=== PATIENT | female | born 1975 | race Caucasian/White ===

== ENCOUNTER 2025-04-30 08:53 | Outpatient (CLI) | payer BC, SELFPAY | END 2025-04-30 08:54 | disposition home or self-care (01) | LOC: LAB 05-07 06:56 | PROVIDERS: PCP Nurse Practitioner Family; Visit Provider Nurse Practitioner Family | DX: Z13.0 Encounter for screening for diseases of the blood and blood-forming organs and certain disorders involving the immune mechanism (principal); R53.83 Other fatigue; I10 Essential (primary) hypertension; Z13.220 Encounter for screening for lipoid disorders | CPT/HCPCS: 80053; 80061; 85007; 85027 ==

== ENCOUNTER 2025-05-14 09:18 | Outpatient (CLI) | payer BC, SELFPAY ==
--- NOTE | 2025-05-14 09:40 | MM_ITS ---
WS: [id number] BILATERAL SCREENING DIGITAL TOMOSYNTHESIS MAMMOGRAM WITH CAD HISTORY: Z12.39 - Encounter for other screening for malignant neop... COMPARISON: 11/13/2018 Bilateral CC and MLO views with tomosynthesis and synthetic mammography submitted. Computer aided detection analyzed. Breast composition: There are scattered areas of fibroglandular density. No suspicious masses, microcalcifications or architectural distortion. MM/MM scr BI tomosynthesis 52020 IMPRESSION: BI-RADS: 1 - Negative. FOLLOW UP: 1 Year Follow-up
== END 2025-05-14 09:19 | disposition home or self-care (01) ==
LOC: RAD 09:20
PROVIDERS: PCP Nurse Practitioner Family; Visit Provider Nurse Practitioner Family
DX: Z12.31 Encounter for screening mammogram for malignant neoplasm of breast (principal)
CPT/HCPCS: 77063; 77067; 80053; 80061; 85007; 85027

== ENCOUNTER → 2025-05-21 10:19 | Outpatient (BNVA) | payer BC, SELFPAY | PROVIDERS: PCP Nurse Practitioner Family; Visit Provider Nurse Practitioner Family | DX: E11.9 Type 2 diabetes mellitus without complications (principal); R53.83 Other fatigue | CPT/HCPCS: 83036; 84439; 84443; 85007; 85027 ==

== ENCOUNTER 2025-06-29 14:31 | Oncology outpatient (recurring) (ONCR) | payer BC, SELFPAY ==
[2025-06-21 10:41] LABS: Hematocrit 36.5 % (36-47); Hemoglobin 11.80 g/dL (11.27-16.99); Mean Corpuscular HGB Conc 32.3 g/dL (30-55); Mean Corpuscular Hemoglobin 24.8 pg (27-33); Mean Corpuscular Volume 76.8 fl (85-98); Nucleated Red Blood Cells % 0 %; Platelet Count 168 10^3/cmm (157-399); Red Blood Count 4.75 10^6/uL (3.85-5.65); White Blood Count 5.39 10^3/uL (3.29-11.43)
[2025-06-21 11:02] LABS: Alanine Aminotransferase 46 U/L (0-33); Albumin Level 4.4 g/dL (3.5-5.2); Alkaline Phosphatase 90 U/L (35-105); Anion Gap 14.8 (5-19); Aspartate Amino Transferase 30 U/L (0-32); Blood Urea Nitrogen 13 mg/dL (6-20); Calcium 9.9 mg/dL (8.5-10.5); Carbon Dioxide 27 mmol/L (22-29); Chloride 103 mmol/L (98-107); Creatinine Clr Calc Pharmacy 126.5661; Ferritin 109 ng/mL (15-150); Globulin 3.3 g/dL (1.3-4.6); Glucose 124 mg/dL (65-115); Iron 42 ug/dL (37-145); Osmolality Calculated 294 mOsm/kg (285-295); Potassium 3.8 mmol/L (3.5-5.1); Sodium 141 mmol/L (136-145); Total Iron Binding Capacity 254 mcg/dl; Total Protein 7.7 g/dL (6.6-8.7); Unsaturated Iron Binding 212 ug/dL (112-347)
[2025-06-21 11:11] LABS: LAB Peripheral Smear Sent for Review
[2025-06-23 07:00] LABS: Leukemia Profile (BBPL) See Report
== END 2025-07-06 23:59 | disposition home or self-care (01) ==
PROVIDERS: PCP Nurse Practitioner Family; Visit Provider Internal Medicine Medical Oncology
DX: Z53.9 Procedure and treatment not carried out, unspecified reason (principal)
CPT/HCPCS: 36415; 80053; 80503; 82728; 82746; 83540; 83550; 85025; 88184; 88185